=== PATIENT | female | born 1950 | race American Indian/Alaskan Native ===

== ENCOUNTER 2017-09-03 13:06 | Outpatient (CLI) | payer MEDICARE, OTHER ==
--- NOTE | 2017-09-03 16:39 | XRay Report ---
FINAL REPORT EXAM: XR CHEST ROUTINE 2V HISTORY: Idiopathic pulmonary fibrosis TECHNIQUE: Frontal and lateral chest radiographs. PRIORS: None. FINDINGS: Aortic calculi are seen. The cardiomediastinal silhouette is normal. No focal consolidation. Interstitial markings are seen within the lung bases. No pleural effusion. No pneumothorax. No acute osseous abnormality. IMPRESSION: No acute cardiopulmonary process. Chronic appearing interstitial opacities at the lung bases may be related to idiopathic pulmonary fibrosis.
--- NOTE | 2017-09-03 17:50 | Cat Scan Report ---
FINAL REPORT EXAM: CT CHEST W CON HISTORY: Idiopathic pulmonary fibrosis TECHNIQUE: CT of the chest was performed after the administration of intravenous contrast. Reconstructions were included in the coronal and sagittal planes. PRIORS: None. FINDINGS: Great vessels: The thoracic aorta is normal in caliber. The great vessels are patent. Atherosclerotic calculi are seen in the thoracic aorta. Lungs and airways: No pleural effusion. There is a 4 millimeter left upper lobe pulmonary nodule on series 3, image 82. No airspace consolidation. The airways are patent. Extensive peripheral reticular markings are seen throughout the lungs, prominently in the lower lobes. There is bronchiectasis in the lower lobes. Mild ground-glass opacities are seen within the lower lobes as well as the right middle lobe. There is some bronchiectasis in the right middle lobe. No evidence of honeycombing. No pulmonary cysts. No micro nodules. Calcified pleural plaques are seen along the posterior aspect of the right upper lobe. Mediastinum, heart, pericardium: No mediastinal lymphadenopathy. No cardiac chamber enlargement. No pericardial effusion. Thoracic inlet, chest wall, axilla: No chest wall masses. The visualized portions of the thyroid gland demonstrate no focal lesion. No axillary lymphadenopathy. Upper abdomen: Simple left upper pole renal cyst is seen. There is a small hiatal hernia. Bones: Degenerative changes are seen in the spine. IMPRESSION: 1. Chronic interstitial opacities may represent idiopathic pulmonary fibrosis versus NSIP versus asbestosis versus rheumatoid arthritis or other etiologies. 2. 4 millimeter left upper lobe pulmonary nodule. In a low risk patient, no further followup is needed. In a high risk patient optional chest CT at 12 months. 3. Calcified right posterior, upper pleural plaques.
== END 2017-09-03 13:07 | disposition home or self-care (01) ==
LOC: CT 13:06
PROVIDERS: ATTEND Internal Medicine
DX: J84.112 Idiopathic pulmonary fibrosis (principal); I70.0 Atherosclerosis of aorta; R91.1 Solitary pulmonary nodule; N28.1 Cyst of kidney, acquired; K44.9 Diaphragmatic hernia without obstruction or gangrene; J92.9 Pleural plaque without asbestos
CPT/HCPCS: 71046; 71260; Q9967

== ENCOUNTER 2019-11-06 13:47 | Outpatient (CLI) | payer MEDICARE, OTHER ==
[2019-11-06 14:41] LABS: Hematocrit 36.7 % (30.3-42.9); Hemoglobin 11.9 gm/dl (10.1-14.3); Mean Corpuscular HGB Conc 32 % (30-34); Mean Corpuscular Volume 91 fl (79-97); Platelet Count 234 K/mm3 (140-440); Red Blood Count 4.03 M/mm3 (3.65-5.03); Red Cell Distribution Width 14.6 % (13.2-15.2)
[2019-11-06 15:31] LABS: Alanine Aminotransferase 26 units/L (7-56); Albumin 4.1 g/dL (3.9-5); BUN/Creatinine Ratio 20; Blood Urea Nitrogen 16 mg/dL (7-17); Calcium 9.9 mg/dL (8.4-10.2); Chol/HDL Ratio 4.09 %; HDL Cholesterol 54 mg/dL (40-59); Hemolysis Index 5; LDL Cholesterol,Direct 161 mg/dL (50-130)
--- NOTE | 2019-11-06 16:01 | XRay Report ---
CHEST 2 VIEWS INDICATION: COUGH. COMPARISON: 09/03/2017 FINDINGS: Support devices: None. Heart: Within normal limits. Lungs/pleura: Interstitial markings are slightly prominent bilaterally particularly in the lung bases suggesting mild fibrotic changes. No infiltrate, pleural effusion or pneumothorax. Additional findings: None. IMPRESSION: Mild fibrotic changes as described. No acute process. Signer Name: Maximus Richardson Jr, MD Signed: 11/06/2019 3:57 PM Workstation Name: [id number]
== END 2019-11-06 13:48 | disposition home or self-care (01) ==
LOC: XRAY 13:47
PROVIDERS: ATTEND Internal Medicine
DX: J84.10 Pulmonary fibrosis, unspecified (principal); J45.909 Unspecified asthma, uncomplicated; I27.20 Pulmonary hypertension, unspecified; M33.20 Polymyositis, organ involvement unspecified; K21.9 Gastro-esophageal reflux disease without esophagitis
CPT/HCPCS: 71046; 80053; 80061; 84436; 84443; 85027

== ENCOUNTER 2020-04-22 10:54 | Outpatient (CLI) | payer MEDICARE, OTHER ==
[2020-04-22 12:00] LABS: Hematocrit 36.4 % (30.3-42.9); Hemoglobin 11.9 gm/dl (10.1-14.3); Mean Corpuscular HGB Conc 33 % (30-34); Mean Corpuscular Volume 91 fl (79-97); Platelet Count 165 K/mm3 (140-440); Red Cell Distribution Width 14.7 % (13.2-15.2)
[2020-04-22 12:09] LABS: Alanine Aminotransferase 21 units/L (7-56); Albumin 3.7 g/dL (3.9-5); BUN/Creatinine Ratio 16; Blood Urea Nitrogen 13 mg/dL (7-17); Calcium 8.7 mg/dL (8.4-10.2); Hemolysis Index 3
[2020-04-22 12:14] LABS: ABG Base Excess 0.6 mmol/L (-2.0-3.0); ABG HCO3 25.4 mmol/L (20.0-26.0); ABG Methemoglobin 0.3 % (0.0-1.5); ABG Oxygen Saturation 94.7 % (95.0-99.0); ABG PCO2 41.2 mm Hg; ABG PH 7.407 pH Units (7.350-7.450); ABG PO2 69.4 mm Hg (80.0-90.0)
== END 2020-04-22 10:55 | disposition home or self-care (01) ==
LOC: LAB 10:54
PROVIDERS: ATTEND Internal Medicine
DX: K21.9 Gastro-esophageal reflux disease without esophagitis (principal); I27.20 Pulmonary hypertension, unspecified; J32.9 Chronic sinusitis, unspecified; J84.10 Pulmonary fibrosis, unspecified; J45.909 Unspecified asthma, uncomplicated; L93.0 Discoid lupus erythematosus; M79.7 Fibromyalgia; M33.20 Polymyositis, organ involvement unspecified; R05 Cough
CPT/HCPCS: 36415; 80053; 82785; 82803; 85027

== ENCOUNTER 2020-09-19 10:12 | Outpatient (CLI) | payer MEDICARE, OTHER ==
[2020-09-19 10:51] LABS: Hematocrit 39.6 % (30.3-42.9); Hemoglobin 12.9 gm/dl (10.1-14.3); Mean Corpuscular HGB Conc 33 % (30-34); Mean Corpuscular Volume 94 fl (79-97); Platelet Count 171 K/mm3 (140-440); Red Blood Count 4.22 M/mm3 (3.65-5.03); Red Cell Distribution Width 15.4 % (13.2-15.2)
[2020-09-19 11:15] LABS: Alanine Aminotransferase 9 units/L (7-56); Albumin 3.9 g/dL (3.9-5); Blood Urea Nitrogen 4 mg/dL (7-17); Calcium 9.6 mg/dL (8.4-10.2); Hemolysis Index 2
[2020-09-19 11:26] LABS: BUN/Creatinine Ratio 6
--- NOTE | 2020-09-19 12:35 | XRay Report ---
CHEST 2 VIEWS INDICATION / CLINICAL INFORMATION: PULMONARY FIBROSIS. COMPARISON: 11/06/19 FINDINGS: SUPPORT DEVICES: None. HEART / MEDIASTINUM: Stable. LUNGS / PLEURA: Bibasilar pulmonary fibrosis is unchanged. No acute airspace disease. No pneumothorax . ADDITIONAL FINDINGS: No significant additional findings. IMPRESSION: 1. Bibasilar pulmonary fibrosis appears stable. No change. Signer Name: Livia Stark MD Signed: 09/19/2020 12:31 PM Workstation Name: [id number]
--- NOTE | 2020-09-19 13:27 | Cat Scan Report ---
CT CHEST WITH CONTRAST INDICATION / CLINICAL INFORMATION: PULMONARY FIBROSIS OMNI 300 100ML . TECHNIQUE: Axial CT images were obtained through the chest after 100 cc of Omnipaque [address] scans at this location are performed using CT dose reduction for ALARA by means of automated exposure control. COMPARISON: Chest radiograph dated November 06, 2019 FINDINGS: HEART: No significant abnormality. CORONARY ARTERY CALCIFICATION: None. THORACIC AORTA: Mild atherosclerotic calcification without acute abnormality. MEDIASTINUM / LEAH: No significant abnormality. PLEURA: No pleural effusion. No pneumothorax. LUNGS: There is increased reticular opacities throughout the bilateral lung bases with confluent grou ndglass opacities. There is subpleural sparing. ADDITIONAL FINDINGS: None. UPPER ABDOMEN: No significant abnormality. SKELETAL SYSTEM: No significant abnormality. IMPRESSION: 1. Increased reticular opacities with a lower lobe predominance suggesting pulmonary fibrosis (nonspe cific interstitial pneumonia favored). Underlying infectious process is not excluded. Signer Name: Nathan Galvez DO Signed: 09/19/2020 1:22 PM Workstation Name: [id number]
[2020-09-21 20:55] LABS: Myeloperoxidase Antibody <1.0 AI (<1.0)
[2020-09-21 23:48] LABS: ANA Screen, IFA Negative (Negative)
== END 2020-09-19 10:13 | disposition home or self-care (01) ==
LOC: XRAY 10:12
PROVIDERS: ATTEND Internal Medicine
DX: J84.10 Pulmonary fibrosis, unspecified (principal); I27.20 Pulmonary hypertension, unspecified; J45.909 Unspecified asthma, uncomplicated; J32.9 Chronic sinusitis, unspecified; L93.0 Discoid lupus erythematosus; M79.7 Fibromyalgia; K21.9 Gastro-esophageal reflux disease without esophagitis; M33.20 Polymyositis, organ involvement unspecified; I25.10 Atherosclerotic heart disease of native coronary artery without angina pectoris; J94.8 Other specified pleural conditions
CPT/HCPCS: 36415; 71046; 71260; 80053; 82164; 85027; 86021; 86038; 86431; Q9967

== ENCOUNTER 2021-08-14 11:40 | Outpatient (CLI) | payer MEDICARE, OTHER ==
--- NOTE | 2021-08-14 14:30 | XRay Report ---
CHEST PA AND LATERAL VIEWS INDICATION: R07.89 LEFT-SIDED CHEST WALL PAIN. COMPARISON: 09/19/2020 FINDINGS: Support devices: None. Heart: Within normal limits. Lungs/Pleura: Interstitial lung disease is again noted greatest in the bases. No superimposed acute p ulmonary or pleural findings. No left-sided rib fractures are identified. IMPRESSION: 1. No acute findings. Signer Name: Juliocesar Resendez MD Signed: 08/14/2021 2:25 PM Workstation Name: [id number]
== END 2021-08-14 11:41 | disposition home or self-care (01) ==
LOC: XRAY 11:40
PROVIDERS: ATTEND Internal Medicine
DX: J84.9 Interstitial pulmonary disease, unspecified (principal); R07.89 Other chest pain
CPT/HCPCS: 71046